=== PATIENT | female | born 1995 | race Caucasian/White ===

== ENCOUNTER 2016-07-13 18:18 | Emergency (ER) | payer SELFPAY ==
--- NOTE | 2016-07-13 19:58 | ER Document Report ---
ED Medical Screen (RME) - General Chief Complaint: Leg Pain Stated Complaint: LEFT FOOT PAIN Mode of Arrival: Wheelchair Information source: Patient Notes: 20-year-old female presents with complaints of left calf pain. Patient notes she is 34 weeks , had recent travel from [place]. Patient notes pain swelling started yesterday. Patient also notes for the past week she's been having clear urine and possibly vaginal discharge Denies any abdominal pain vaginal bleeding I have greeted and performed a rapid initial assessment of this patient. A comprehensive ED assessment and evaluation of the patient, analysis of test results and completion of the medical decision making process will be conducted by additional ED providers. PHYSICAL EXAMINATION: GENERAL: Well-appearing, well-nourished and in no acute distress. HEAD: Atraumatic, normocephalic. EYES: Pupils equal round extraocular movements intact, conjunctiva are normal. ENT: Nares patent NECK: Normal range of motion LUNGS: No respiratory distress Musculoskeletal: Normal range of motion NEUROLOGICAL: Normal speech, normal gait. PSYCH: Normal mood, normal affect. SKIN: Warm, Dry, normal turgor, no rashes or lesions noted. TRAVEL OUTSIDE OF THE [place] IN LAST 30 DAYS: No - Related Data Allergies/Adverse Reactions: No Known Allergies Allergy (Verified 07/13/16 19:57) Past Medical History Renal/ Medical History: Denies: Hx Peritoneal Dialysis
[2016-07-13 20:52] LABS: ABSOLUTE EOSINOPHILS # (AUTO) 0.1 10^3/uL (0.0-0.6); ABSOLUTE LYMPHOCYTES (AUTO) 2.5 10^3/uL (0.5-4.7); ABSOLUTE MONOCYTES (AUTO) 0.9 10^3/uL (0.1-1.4); ABSOLUTE NEUT (AUTO) 6.5 10^3/uL (1.7-8.2); BASOPHILS % (AUTO) 0.3 % (0-2); EOSINOPHILS % (AUTO) 0.8 % (0-6); HEMATOCRIT 32.9 % (36.0-47.0); HEMOGLOBIN 11.3 g/dL (12.0-15.5); LYMPHOCYTES % (AUTO) 24.9 % (13-45); MEAN CORPUSCULAR HEMOGLOBIN 30.3 pg (27.0-33.4); MEAN CORPUSCULAR HGB CONC 34.4 g/dL (32.0-36.0); MEAN CORPUSCULAR VOLUME 88 fl (80-97); MONOCYTES % (AUTO) 8.9 % (3-13); RED BLOOD COUNT 3.74 10^6/uL (3.72-5.28); RED CELL DISTRIBUTION WIDTH 13.8 % (11.5-14.0); SEGMENTED NEUTROPHILS % (AUTO) 65.1 % (42-78)
[2016-07-13 21:09] LABS: APPEARANCE,URINE CLOUDY; BILIRUBIN,URINE NEGATIVE (NEGATIVE); GLUCOSE, URINE NEGATIVE (NEGATIVE); KETONES,URINE 20 mg/dL (NEGATIVE); LEUKOCYTE ESTERASE,URINE NEGATIVE (NEGATIVE); NITRITE,URINE NEGATIVE (NEGATIVE); PROTEIN,URINE NEGATIVE (NEGATIVE); URINE SPECIFIC GRAVITY 1.013
[2016-07-13 21:11] LABS: ALANINE AMINOTRANSFERASE 22 U/L (5-35); ALBUMIN 3.6 g/dL (3.7-5.6); ALKALINE PHOSPHATASE 84 U/L (50-135); ANION GAP 9 (5-19); ASPARTATE AMINO TRANSFERASE 21 U/L (5-30); BILIRUBIN,DIRECT 0.1 mg/dL (0.0-0.4); BILIRUBIN,TOTAL 0.4 mg/dL (0.2-1.3); BLOOD UREA NITROGEN 3 mg/dL (7-20); CARBON DIOXIDE 24 mmol/L (22-30); CHLORIDE 104 mmol/L (98-107); CREATININE RESULT 0.52 mg/dL (0.52-1.25); GLUCOSE 107 mg/dL (75-110); SODIUM 137.4 mmol/L (137-145); TOTAL PROTEIN 6.4 g/dL (6.3-8.2)
--- NOTE | 2016-07-13 21:50 | ER Document Report ---
ED General - General Chief Complaint: Leg Pain Stated Complaint: LEFT FOOT PAIN Time seen by provider: 21:48 Mode of Arrival: Wheelchair Information source: Patient Notes: This is a 20-year-old female 2 para 0, 34 weeks who presents to the emergency room initially with left calf pain. Patient recently flew here from [place] and states she's had left calf pain and some swelling for the past few days. Patient denies any chest pain or shortness of breath. While in the ER, after her ultrasound, patient stated that she's been having pelvic cramping. She denies any vaginal bleeding. TRAVEL OUTSIDE OF THE [place] IN LAST 30 DAYS: No - HPI Onset: Just prior to arrival Onset/Duration: Gradual Quality of pain: Cramping Severity: None Pain Level: Denies Associated symptoms: denies: Chills, Nonproductive cough, Productive cough, Fever, Nausea, Vomiting, Shortness of breath Exacerbated by: Denies Relieved by: Denies Similar symptoms previously: No Recently seen / treated by doctor: No - Related Data Allergies/Adverse Reactions: No Known Allergies Allergy (Verified 07/13/16 19:57) Past Medical History - General Information source: Patient - Social History Smoking Status: Never Smoker Cigarette use (# per day): No Chew tobacco use (# tins/day): No Frequency of alcohol use: None Drug Abuse: None Lives with: Spouse/Significant other Family History: Reviewed & Not Pertinent Patient has suicidal ideation: No Patient has homicidal ideation: No - Medical History Medical History: Negative Renal/ Medical History: Denies: Hx Peritoneal Dialysis Past Surgical History: Reports: Hx Orthopedic Surgery - left ACL and meniscus repair Review of Systems - Review of Systems Constitutional: denies: Chills, Fever EENT: No symptoms reported Cardiovascular: No symptoms reported Respiratory: No symptoms reported Gastrointestinal: See HPI Genitourinary: No symptoms reported Female Genitourinary: No symptoms reported Musculoskeletal: No symptoms reported Skin: No symptoms reported Hematologic/Lymphatic: No symptoms reported Neurological/Psychological: No symptoms reported Physical Exam - Vital signs Vitals: Temp Pulse Resp BP Pulse Ox 98.2 F 101 H 16 117/67 97 07/13/16 18:43 07/13/16 18:43 07/13/16 18:43 07/13/16 18:43 07/13/16 18:43 Notes: Physical exam: GENERAL: 20-year-old female, alert and oriented 3, no acute distress. HEAD: Atraumatic, normocephalic. EYES: Pupils equal round and reactive to light, extraocular movements intact, sclera anicteric, conjunctiva are normal. ENT: TMs normal, nares patent, oropharynx clear without exudates. Moist mucous membranes. NECK: Normal range of motion, supple without lymphadenopathy or JVD. LUNGS: Breath sounds clear to auscultation bilaterally and equal. No wheezes rales or rhonchi. HEART: Regular rate and rhythm without murmurs, rubs or gallops. ABDOMEN: Soft, normoactive bowel sounds. Abdomen is consistent with 34 weeks gestation. No tenderness to palpation. No guarding, no rebound. Patient is complaining of pelvic cramping at this time. Bedside ultrasound: Confirms third trimester gestation with good heart tones EXTREMITIES: Normal range of motion, no pitting or edema. No clubbing or cyanosis. NEUROLOGICAL: Cranial nerves II through XII grossly intact. Normal speech, normal gait. PSYCH: Normal mood, normal affect. SKIN: Warm, Dry, normal turgor, no rashes or lesions noted. Course - Re-evaluation Re-evalutation: 07/14/16 04:01 Lower extremity Doppler showed no evidence of DVT. During my evaluation, the patient states she's been having pelvic cramping on and off for the past 3 days. She states that she's been having cramping since coming into the ER. She denies any vaginal bleeding. Bedside ultrasound shows viable intrauterine and the third gestation. Given the active cramping, patient was sent to labor and delivery directly from the ER. - Vital Signs Vital signs: Temp Pulse Resp BP Pulse Ox 98.3 F 124 H 16 125/66 96 07/13/16 22:01 07/13/16 22:01 07/13/16 22:01 07/13/16 22:01 07/13/16 22:01 - Laboratory Result Diagrams: 07/13/16 20:42 07/13/16 20:42 Laboratory results interpreted by me: 07/13/16 07/13/16 07/13/16 20:42 20:42 20:55 Hgb 11.3 L Hct 32.9 L BUN 3 L Albumin 3.6 L Urine Ketones 20 H Urine Urobilinogen 2.0 H Urine Ascorbic Acid 40 H - Diagnostic Test Radiology reviewed: Image reviewed, Reports reviewed - Lower extremity Doppler shows no evidence of DVT Discharge - Discharge Clinical Impression: calf pain, pelvic cramping, 34 weeks Condition: Stable Disposition: HOME, SELF-CARE Additional Instructions: As we discussed, the lower extremity Doppler ultrasound showed no evidence of DVT. Because of the pelvic cramping in third trimester , we are sending you to labor and delivery for evaluation.
[2016-07-13 22:04] VITALS: BP 125/66
--- NOTE | 2016-07-14 09:15 | XCELERA REPORT ---
[address] [address] Lower Extremity Venous Evaluation Name: ANOOP PIRES Age: 20 yrs Gender: Female : 1995 Patient Status: Preadmit Patient Location: ER Study Date: 07/13/2016 08:16 PM Procedure: Color flow and duplex imaging of the veins of the left lower extremity as well as the right Common Femoral vein. Reason For Study: left calf pain, travel Ordering Physician: VLADIMIR TY Performed By: Berna Morataya Right Sided Venous Evaluation The right common femoral vein is fully compressible. Spontaneous and phasic flow is present in the right common femoral vein. Left Sided Venous Evaluation Normal vessel filling wall to wall, compression and augmentation as well as Colour flow down to the infrageniculate veins. Critical Findings Called in to the ER . Interpretation Summary No duplex evidence of DVT or obstruction in the left lower extremity nor in the right Common Femoral vein. : VLADIMIR TY > Tito Guillen
== END 2016-07-13 22:25 | disposition home or self-care (01) ==
LOC: ER 18:18
DX: O26.93 Pregnancy related conditions, unspecified, third trimester (principal); R10.2 Pelvic and perineal pain; M79.605 Pain in left leg; Z3A.34 34 weeks gestation of pregnancy
CPT/HCPCS: 36415; 80053; 81001; 85025; 93971; 99284

== ENCOUNTER 2016-07-13 22:20 | Outpatient (CLI) | payer SELFPAY ==
[2016-07-13 23:08] LABS: URINE BARBITURATES SCREEN NEGATIVE; URINE METHADONE SCREEN NEGATIVE; URINE OPIATES LOW NEGATIVE; URINE PHENCYCLIDINE SCREEN NEGATIVE
[2016-07-14 00:21] LABS: CHLAM PCR NOT DETECTED (NOT DETECT)
== END 2016-07-14 00:21 | disposition home or self-care (01) ==
LOC: LC 22:20
PROVIDERS: ATTEND Specialist
PROC: 4A1HXCZ Monitoring of Products of Conception, Cardiac Rate, External Approach (ICD-10-PCS; principal; 2016-07-13)
DX: O47.03 False labor before 37 completed weeks of gestation, third trimester (principal); Z3A.34 34 weeks gestation of pregnancy
CPT/HCPCS: 59025; 80307; 87077; 87081; 87491; 87591